=== PATIENT | female | born 1985 | race Caucasian/White ===

== ENCOUNTER → 2020-03-02 | Outpatient (CLI) | payer OTHER ==
--- NOTE | 2020-03-02 16:48 | RAD ---
PROCEDURE: FOOT RIGHT 2V STUDY DATE: 03/02/2020 CLINICAL INDICATION / HISTORY: Reason: RIGHT FOOT PAIN. / Spl. Instructions: / History: . TECHNIQUE: AP and lateral views of the right foot were obtained. COMPARISON: None FINDINGS: No fracture or dislocation is identified. The bone density is normal. The joint space widths are maintained, and there are no erosions to suggest an inflammatory arthropathy. No soft tissue abnormality is seen. IMPRESSION: No acute osseous abnormality. Electronically signed by: Ellis Henderson MD (03/02/2020 4:45 PM) [id number]
== END ==
LOC: RAD 13:51
PROVIDERS: ATTEND Anesthesiology Pain Medicine
DX: M79.671 Pain in right foot (principal)
CPT/HCPCS: 73620